=== PATIENT | female | born 1965 | race Two or more races ===

== ENCOUNTER 2025-03-14 15:40 | Outpatient (CLI) | payer MEDICAID ==
[~2025-03-14] VITALS: Ht 161.3 cm; Wt 88.0 kg
[2025-03-14 16:12] VITALS: PULSE 74; RESP 18; O2SAT 98
[2025-03-14] MEDS: albuterol 2.5 MG/3 ML nebule NEB STA (16:48)
[2025-03-14 17:39] VITALS: PULSE 87; RESP 18
== END 2025-03-14 23:59 | disposition home or self-care (01) ==
LOC: RT 15:40
PROVIDERS: ATTEND Family Medicine
DX: R06.02 Shortness of breath (principal)
CPT/HCPCS: 94060; 94760